=== PATIENT | female | born 1990 | race Caucasian/White ===

== ENCOUNTER → 2021-02-19 08:57 | Outpatient (BNV) | payer MEDICAID, OTHER, SELFPAY | PROVIDERS: PCP Internal Medicine; Visit Provider Internal Medicine | DX: O99.013 Anemia complicating pregnancy, third trimester (principal); D50.9 Iron deficiency anemia, unspecified; Z3A.00 Weeks of gestation of pregnancy not specified | CPT/HCPCS: 99204; 99213; 99214; G2211 ==

== ENCOUNTER 2021-02-20 11:05 | Outpatient (REF) | payer MEDICAID, SELFPAY | END 2021-02-20 11:06 | disposition home or self-care (01) | LOC: HO.MDS 11:05 | PROVIDERS: Visit Provider Internal Medicine | DX: O99.019 Anemia complicating pregnancy, unspecified trimester (principal); D50.9 Iron deficiency anemia, unspecified; Z3A.00 Weeks of gestation of pregnancy not specified | CPT/HCPCS: 96365; J2916 ==

== ENCOUNTER 2021-02-27 12:08 | Outpatient (REF) | payer MEDICAID, SELFPAY | END 2021-02-27 12:09 | disposition home or self-care (01) | LOC: HO.MDS 12:08 | PROVIDERS: Visit Provider Internal Medicine | DX: O99.019 Anemia complicating pregnancy, unspecified trimester (principal); D50.9 Iron deficiency anemia, unspecified; Z3A.00 Weeks of gestation of pregnancy not specified | CPT/HCPCS: 96365; J2916 ==

== ENCOUNTER 2021-03-14 10:58 | Outpatient (REF) | payer MEDICAID, SELFPAY | END 2021-03-14 10:59 | disposition home or self-care (01) | LOC: HO.MDS 10:58 | PROVIDERS: Visit Provider Internal Medicine | DX: D50.9 Iron deficiency anemia, unspecified (principal) | CPT/HCPCS: 96365; J2916 ==

== ENCOUNTER 2021-03-21 11:11 | Outpatient (REF) | payer MEDICAID, SELFPAY | END 2021-03-21 11:12 | disposition home or self-care (01) | LOC: HO.MDS 11:11 | PROVIDERS: Visit Provider Internal Medicine | DX: O99.019 Anemia complicating pregnancy, unspecified trimester (principal); D50.9 Iron deficiency anemia, unspecified; Z3A.00 Weeks of gestation of pregnancy not specified | CPT/HCPCS: 96365; J2916 ==

== ENCOUNTER 2021-03-28 11:11 | Outpatient (REF) | payer MEDICAID, SELFPAY | END 2021-03-28 11:12 | disposition home or self-care (01) | LOC: HO.MDS 11:11 | PROVIDERS: Visit Provider Internal Medicine | DX: O99.019 Anemia complicating pregnancy, unspecified trimester (principal); D50.9 Iron deficiency anemia, unspecified; Z3A.00 Weeks of gestation of pregnancy not specified | CPT/HCPCS: 96365; J2916 ==

== ENCOUNTER 2021-04-02 06:57 | Outpatient (REF) | payer MEDICAID, SELFPAY | END 2021-04-02 06:58 | disposition home or self-care (01) | LOC: HO.MDS 06:57 | PROVIDERS: Visit Provider Internal Medicine | DX: O99.019 Anemia complicating pregnancy, unspecified trimester (principal); D50.9 Iron deficiency anemia, unspecified; Z3A.00 Weeks of gestation of pregnancy not specified | CPT/HCPCS: 96365; J2916 ==

== ENCOUNTER 2021-04-03 10:48 | Outpatient (REF) | payer MEDICAID, SELFPAY | END 2021-04-03 10:49 | disposition home or self-care (01) | LOC: HO.MDS 10:48 | PROVIDERS: Visit Provider Internal Medicine | DX: O99.019 Anemia complicating pregnancy, unspecified trimester (principal); D50.9 Iron deficiency anemia, unspecified; Z3A.00 Weeks of gestation of pregnancy not specified | CPT/HCPCS: 96365; J2916 ==

== ENCOUNTER 2022-09-04 09:11 | Outpatient (REF) | payer MEDICAID, SELFPAY | END 2022-09-04 09:12 | disposition home or self-care (01) | LOC: HO.MDS 09:11 | PROVIDERS: Visit Provider Internal Medicine | DX: O99.013 Anemia complicating pregnancy, third trimester (principal); D50.9 Iron deficiency anemia, unspecified; Z3A.32 32 weeks gestation of pregnancy | CPT/HCPCS: 96365; J2916 ==

== ENCOUNTER 2022-09-13 08:54 | Outpatient (REF) | payer MEDICAID, SELFPAY | END 2022-09-13 08:55 | disposition home or self-care (01) | LOC: HO.MDS 08:54 | PROVIDERS: Visit Provider Internal Medicine | DX: O99.013 Anemia complicating pregnancy, third trimester (principal); D50.9 Iron deficiency anemia, unspecified; Z3A.32 32 weeks gestation of pregnancy | CPT/HCPCS: 96365; J2916 ==

== ENCOUNTER 2022-09-20 08:55 | Outpatient (REF) | payer MEDICAID, SELFPAY | END 2022-09-20 08:56 | disposition home or self-care (01) | LOC: HO.MDS 08:55 | PROVIDERS: Visit Provider Internal Medicine | DX: O99.013 Anemia complicating pregnancy, third trimester (principal); D50.9 Iron deficiency anemia, unspecified; Z3A.35 35 weeks gestation of pregnancy | CPT/HCPCS: 96365; J2916 ==

== ENCOUNTER 2022-09-25 08:33 | Outpatient (REF) | payer MEDICAID, SELFPAY | END 2022-09-25 08:34 | disposition home or self-care (01) | LOC: HO.MDS 08:33 | PROVIDERS: Visit Provider Internal Medicine | DX: O99.013 Anemia complicating pregnancy, third trimester (principal); D50.9 Iron deficiency anemia, unspecified; Z3A.35 35 weeks gestation of pregnancy | CPT/HCPCS: 96365 ==

== ENCOUNTER 2022-09-27 09:13 | Outpatient (REF) | payer MEDICAID, SELFPAY | END 2022-09-27 09:14 | disposition home or self-care (01) | LOC: HO.MDS 09:13 | PROVIDERS: Visit Provider Internal Medicine | DX: O99.013 Anemia complicating pregnancy, third trimester (principal); D50.9 Iron deficiency anemia, unspecified; Z3A.35 35 weeks gestation of pregnancy | CPT/HCPCS: 96365 ==

== ENCOUNTER 2022-10-02 09:48 | Outpatient (REF) | payer MEDICAID, SELFPAY | END 2022-10-02 09:49 | disposition home or self-care (01) | LOC: HO.MDS 09:48 | PROVIDERS: Visit Provider Internal Medicine | DX: O99.013 Anemia complicating pregnancy, third trimester (principal); D50.9 Iron deficiency anemia, unspecified; Z3A.36 36 weeks gestation of pregnancy | CPT/HCPCS: 96365; J2916 ==

== ENCOUNTER 2022-10-04 09:09 | Outpatient (REF) | payer MEDICAID, SELFPAY | END 2022-10-04 09:10 | disposition home or self-care (01) | LOC: HO.MDS 09:09 | PROVIDERS: Visit Provider Internal Medicine | DX: O99.013 Anemia complicating pregnancy, third trimester (principal); D50.9 Iron deficiency anemia, unspecified; Z3A.36 36 weeks gestation of pregnancy | CPT/HCPCS: 96365; J2916 ==

== ENCOUNTER 2022-10-07 10:32 | Outpatient (REF) | payer OTHER, SELFPAY | END 2022-10-07 10:33 | disposition home or self-care (01) | LOC: HO.MDS 10:32 | PROVIDERS: Visit Provider Internal Medicine | DX: O99.013 Anemia complicating pregnancy, third trimester (principal); D50.9 Iron deficiency anemia, unspecified; Z3A.37 37 weeks gestation of pregnancy | CPT/HCPCS: 96365; J2916 ==

== ENCOUNTER 2025-02-16 08:15 | Outpatient (RCR) | payer MEDICAID, SELFPAY ==
[2025-01-24 09:14] VITALS: BP 111/62; PULSE 88; RESP 16; TEMP 36.7; O2SAT 98
[2025-01-26 12:16] VITALS: BP 105/58; PULSE 85; RESP 16; TEMP 36.6; O2SAT 98
[2025-01-31 09:32] VITALS: BP 103/62; PULSE 78; RESP 20; TEMP 36.9; O2SAT 97
[2025-02-02 10:20] VITALS: BP 108/62; PULSE 80; RESP 16; TEMP 36.6; O2SAT 98
[2025-02-02] MEDS: 0.9 % Sodium Chloride Flush 10 ML SYRINGE 5 ML IVFLUSH (10:41)
[2025-02-02 10:54] VITALS: BP 103/58; PULSE 44
[2025-02-07 08:32] VITALS: BP 102/66; PULSE 89; RESP 20; TEMP 36.1; O2SAT 99
[2025-02-09 08:27] VITALS: BP 109/64; PULSE 95; RESP 16; TEMP 36.6; O2SAT 100
[2025-02-14 09:06] VITALS: BP 99/63; PULSE 88; RESP 16; TEMP 36.6; O2SAT 99
[2025-02-14] MEDS: 0.9 % Sodium Chloride Flush 10 ML SYRINGE 5 ML IVFLUSH (09:40)
[2025-02-16 08:00] VITALS: BP 93/66; PULSE 101; RESP 16; TEMP 36.2; O2SAT 98
== END 2025-02-16 08:48 | disposition home or self-care (01) ==
LOC: HO.INF 08:15
PROVIDERS: Visit Provider Internal Medicine
DX: D64.9 Anemia, unspecified (principal)
CPT/HCPCS: 96365; 96374; J1756